=== PATIENT | male | born 1960 | race Two or more races ===

== ENCOUNTER 2018-04-18 23:17 | Emergency (ER) | payer MEDICAID, SELFPAY ==
[~2018-04-18] VITALS: Ht 177.8 cm; Wt 81.6 kg
[~2018-04-18 23:17] MED LIST: ALBUTEROL SULF8.5 GM INH; AZITHROMYCIN250 MG ORAL; PREDNISONE20 MG ORAL; UNOBMED
[2018-04-18] MEDS ORDERED: Tetanus/Diptheria/Pertussis Vaccine 0.5ml Syr IM ONE (23:45)
[2018-04-19] VITALS: BP 171/105
--- NOTE | 2018-04-19 00:13 | Diagnostic Imaging Report ---
EXAM: CT Head Without Intravenous Contrast CLINICAL HISTORY: TRAUMA TECHNIQUE: Axial computed tomography images of the head/brain without intravenous contrast. CTDI is 15 mGy and DLP is 484 mGy-cm. One or more of the following dose reduction techniques were used: automated exposure control, adjustment of the mA and/or kV according to patient size, use of iterative reconstruction technique. COMPARISON: No relevant prior studies available. FINDINGS: Brain: No hemorrhage. No edema. Ventricles: Unremarkable. No ventriculomegaly. Bones/joints: Unremarkable. No acute fracture. Soft tissues: Unremarkable. Sinuses: No fluid levels. Mastoid air cells: Unremarkable as visualized. No mastoid effusion. IMPRESSION: No acute intracranial findings
[2018-04-19] MEDS ORDERED: Lidocaine 1% Plain 30 ml INJ ONE (00:23)
[2018-04-19] MEDS ORDERED: Lidocaine 1% 10mg/ml/Epi 0.005mg/ml 30ml vial INJ ONE (00:30)
--- NOTE | 2018-04-19 00:43 | Emergency Room Report ---
History of Present Illness General Chief Complaint: Head Injury Source: Patient Present Illness HPI Is a 57-year-old male cardiac history on Plavix. He presents with chief complaint of head injury. He tripped over his dog in the backyard hit his head on the chair. He sustained a laceration over the left forehead and eyebrow area. No loss of consciousness. This occurred just prior to arrival. Allergies: Coded Allergies: CODEINE (Verified Allergy, 09/29/12) Patient History Past Medical History: see triage record, old chart reviewed Past Surgical History: other Pertinent Family History: none Social History: Denies: smoking Immunizations: other Reviewed Nursing Documentation: PMH: Agreed; PSxH: Agreed Nursing Documentation-PMH Hx Cardiac Problems: Yes - STENT 2011 Hx Hypertension: Yes Review of Systems Eye: Denies: eye pain, blurred vision ENT: Denies: ear pain, nose congestion, throat swelling Respiratory: Denies: cough, shortness of breath Cardiovascular: Denies: chest pain, palpitations Gastrointestinal: Denies: abdominal pain, diarrhea, nausea, vomiting Musculoskeletal: Denies: back pain, joint pain Skin: Denies: rash Neurological: Denies: headache, numbness Endocrine: Denies: increased thirst, increased urine Hematologic/Lymphatic: Denies: easy bruising All Other Systems: negative except mentioned in HPI Physical Exam Vital Signs Date Time Temp Pulse Resp B/P (MAP) Pulse Ox O2 Delivery O2 Flow Rate FiO2 04/18/18 23:30 98.0 61 18 171/105 98 Room Air 98.1 vitals with high blood pressure Sp02 EP Interpretation: reviewed, normal General Appearance: well appearing, no apparent distress, alert Head: normocephalic, other - 3 cm laceration to the left forehead just above eyebrow. no fb. Eyes: bilateral eye PERRL, bilateral eye EOMI ENT: hearing grossly normal, normal pharynx Neck: full range of motion, supple, no meningismus Respiratory: chest non-tender, lungs clear, normal breath sounds Cardiovascular #1: regular rate, rhythm, no murmur Gastrointestinal: normal bowel sounds, non tender, no mass, no organomegaly, no bruit, non-distended Musculoskeletal: back normal, gait/station normal, normal range of motion Psychiatric: mood/affect normal Skin: warm/dry Procedures Laceration/Wound Repair Laceration/Wound Repair : Consent: Verbal Wound Location: face Wound's Depth, Shape: into muscle, irregular, contused tissue Wound Length (cm): 3 Wound Explored: clean Irrigated w/ Saline (ccs): 1000 Betadine Prep?: Yes Anesthesia: 1% Lidocaine Volume Anesthetic (ccs): 4 Wound Debrided: minimal Wound Repaired With: sutures Suture Size/Type: 5:0, proline Number of Sutures: 4 Patient Tolerated: Well Complications: None Medical Decision Making Diagnostic Impression: Primary Impression: Acute head injury Qualified Codes: S09.90XA - Unspecified injury of head, initial encounter Additional Impression: Forehead laceration Qualified Codes: S01.81XA - Laceration without foreign body of other part of head, initial encounter ER Course Patient presents with a head injury and laceration. No bleed or skull fracture. No foreign body. We'll discharge home. CT/MRI/US Diagnostic Results CT/MRI/US Diagnostic Results : Imaging Test Ordered: CT head Impression read by radiologist. neg Last Vital Signs Date Time Temp Pulse Resp B/P (MAP) Pulse Ox O2 Delivery O2 Flow Rate FiO2 04/18/18 23:30 98.0 61 18 171/105 98 Room Air 98.1 Status: improved Disposition: HOME, SELF-CARE Condition: Stable Additional Instructions: Take motrin as needed for pain. Follow up with your doctor in 7 days for suture removal. Return if worse. FRANCESCO LAGUNA M.D. Apr 19, 2018 00:43
[2018-04-19] MEDS ORDERED: Bacitracin Oint UD TOPIC ONE ×2 (00:44→00:45)
== END 2018-04-19 06:07 | disposition home or self-care (01) ==
LOC: EMR 23:55
DX: S01.81XA Laceration without foreign body of other part of head, initial encounter (principal); W01.190A Fall on same level from slipping, tripping and stumbling with subsequent striking against furniture, initial encounter; Y92.017 Garden or yard in single-family (private) house as the place of occurrence of the external cause; Z23 Encounter for immunization
CPT/HCPCS: 12013; 70450; 90471; 90715; 99284; J2001; Z7502

== ENCOUNTER 2018-04-21 23:26 | Emergency (ER) | payer MEDICAID ==
[~2018-04-21] VITALS: Ht 177.8 cm; Wt 81.6 kg
[2018-04-21] MEDS ORDERED: CRESTOR10 M2 ORAL (23:36)
[2018-04-21] MEDS ORDERED: METOPROLOL TART50 M1 ORAL (23:36)
[2018-04-21] MEDS ORDERED: PLAVIX75 MG ORAL (23:36)
[2018-04-21] MEDS ORDERED: ENALAPRIL MALEA10 MG ORAL (23:36)
[2018-04-21 23:42] VITALS: BP 129/82
--- NOTE | 2018-04-21 23:50 | Emergency Room Report ---
History of Present Illness General Chief Complaint: Wound Recheck/Suture Removal Source: Patient Present Illness HPI Is a 57-year-old male with cardiac history. He was here 3 days ago for fall with a four-day laceration. I sutured him up. There was some's hematoma to that area. Now he has a black eye to the left eye area. Family was concerned so he came in to be checked. He also wanted make sure swelling goes down before his grandson wedding in 2 days. She has no nausea vomiting. No blurry vision. No other complaint. Allergies: Coded Allergies: CODEINE (Verified Allergy, 09/29/12) Patient History Past Medical History: see triage record, old chart reviewed Past Surgical History: none Pertinent Family History: none Social History: Denies: smoking Immunizations: other Reviewed Nursing Documentation: PMH: Agreed; PSxH: Agreed Nursing Documentation-PMH Hx Cardiac Problems: Yes - STENT 2011 Hx Hypertension: Yes Review of Systems Eye: Denies: eye pain, blurred vision ENT: Denies: ear pain, nose congestion, throat swelling Respiratory: Denies: cough, shortness of breath Cardiovascular: Denies: chest pain, palpitations Gastrointestinal: Denies: abdominal pain, diarrhea, nausea, vomiting Musculoskeletal: Denies: back pain, joint pain Skin: Denies: rash Neurological: Denies: headache, numbness Endocrine: Denies: increased thirst, increased urine Hematologic/Lymphatic: Denies: easy bruising All Other Systems: negative except mentioned in HPI Physical Exam Vital Signs Date Time Temp Pulse Resp B/P (MAP) Pulse Ox O2 Delivery O2 Flow Rate FiO2 04/21/18 23:30 97.2 65 18 129/82 98 Room Air 97.2 vitals normal Sp02 EP Interpretation: reviewed, normal General Appearance: well appearing, no apparent distress, alert Head: normocephalic, atraumatic Eyes: left eye other - Left periorbital ecchymosis; bilateral eye PERRL, bilateral eye EOMI ENT: hearing grossly normal, normal pharynx Neck: full range of motion, supple, no meningismus Respiratory: chest non-tender, lungs clear, normal breath sounds Cardiovascular #1: regular rate, rhythm, no murmur Gastrointestinal: normal bowel sounds, non tender, no mass, no organomegaly, no bruit, non-distended Musculoskeletal: back normal, gait/station normal, normal range of motion Psychiatric: mood/affect normal Skin: warm/dry Medical Decision Making Diagnostic Impression: Primary Impression: Encounter for wound re-check Additional Impression: Periorbital ecchymosis of left eye Qualified Codes: S00.12XA - Contusion of left eyelid and periocular area, initial encounter ER Course Patient with periorbital ecchymosis. His wound looks fine. This ecchymosis secondary to gravity from his forehead hematoma area. Is no evidence of any pain over the orbital rim. No evidence of any fracture the cause entrapment. Last Vital Signs Date Time Temp Pulse Resp B/P (MAP) Pulse Ox O2 Delivery O2 Flow Rate FiO2 04/21/18 23:42 97.2 65 18 129/82 98 Room Air 97.2 Status: unchanged Disposition: HOME, SELF-CARE Condition: Stable Patient Instructions: Wound Check Additional Instructions: Ice pack to the area. Follow-up with your Dr. within 7 days for suture removal. Return if symptom worsen. FRANCESCO LAGUNA M.D. Apr 21, 2018 23:50
[2018-04-21 23:54] VITALS: BP 129/82
== END 2018-04-21 23:55 | disposition home or self-care (01) ==
LOC: EMR 23:50
DX: Z09 Encounter for follow-up examination after completed treatment for conditions other than malignant neoplasm (principal); S00.12XA Contusion of left eyelid and periocular area, initial encounter; W19.XXXA Unspecified fall, initial encounter; Y93.9 Activity, unspecified; Y92.9 Unspecified place or not applicable; I10 Essential (primary) hypertension; Z95.5 Presence of coronary angioplasty implant and graft
CPT/HCPCS: 99281